=== PATIENT | female | born 2000 | race Caucasian/White ===

== ENCOUNTER → 2022-05-13 12:59 | Outpatient (BNVA) | payer MEDICAID, SELFPAY | PROVIDERS: Visit Provider Emergency Medicine | DX: J02.9 Acute pharyngitis, unspecified (principal); Z20.818 Contact with and (suspected) exposure to other bacterial communicable diseases; J00 Acute nasopharyngitis [common cold]; H00.014 Hordeolum externum left upper eyelid | CPT/HCPCS: 87071; 87880 ==